=== PATIENT | male | born 1975 | race Caucasian/White ===

== ENCOUNTER 2018-01-09 05:26 | Emergency (ER) | payer BC ==
[~2018-01-09 05:26] MED LIST: ALBU8.5H12 IH
--- NOTE | 2018-01-09 05:30 | ER Report ---
History and Physical Time Seen By MD: 05:28 HPI/ROLDAN CHIEF COMPLAINT: Esophageal blockage HISTORY OF PRESENT ILLNESS: 42-year-old male presents ambulatory to the ER stating he has a pieces take stuck in his throat since approximately 6 PM. He has been unable to swallow his secretions. Patient denies a long history of gastric esophageal reflux disease. He notes occasional heartburn. He notes occasional dysphasia with dry foods. Patient states he tried to drink some Mountain Dew. He is able to keep down for a few minutes and then it comes back up. REVIEW OF SYSTEMS: Respiratory: No cough, no dyspnea. Cardiovascular: No chest pain, no palpitations. Gastrointestinal: As above Musculoskeletal: No back pain. Allergies: Coded Allergies: No Known Drug Allergies (Verified , 11/26/10) Home Meds Reported Medications Budesonide/Formoterol Fumarate (SYMBICORT 160-4.5 MCG INHALER) 10.2 Gm Inh, 10.2 GM INH, INH 01/09/18 Discontinued Reported Medications Albuterol Sulfate (Albuterol Sulfate Hfa) 8.5 Gm Hfa.aer.ad, 8.5 GM IH, 0 Refills 11/26/10 Past Medical/Surgical History Reactive airways disease, uses Symbicort secondary to dust from woodworking Reviewed Nurses Notes: Yes Old Medical Records Reviewed: Yes Hx Substance Use Disorder: No Hx Alcohol Use: No Constitutional Vital Sign - Last 24 Hours 01/09/18 01/09/18 01/09/18 01/09/18 05:30 05:32 05:36 05:41 Pulse 79 69 70 Resp 16 B/P (MAP) 125/90 (102) 125/90 Pulse Ox 98 93 93 O2 Delivery Room Air 01/09/18 01/09/18 01/09/18 01/09/18 05:46 05:51 05:56 06:00 Pulse 71 78 B/P (MAP) 120/88 (99) 118/85 (96) Pulse Ox 93 93 01/09/18 01/09/18 01/09/18 01/09/18 06:01 06:06 06:11 06:16 Pulse 71 ??? 74 75 Pulse Ox 94 94 94 93 01/09/18 01/09/18 01/09/18 01/09/18 06:21 06:26 06:30 06:36 Pulse 76 65 58 B/P (MAP) 120/93 (102) Pulse Ox 96 96 96 Physical Exam General Appearance: The patient is alert, has no immediate need for airway protection and no current signs of toxicity. Vital signs stable, afebrile, pulse ox normal HEENT: Pupils equal and round no injection. Oropharynx without redness or exudate, mucous members are moist., No visualized foreign body Respiratory: Chest is non tender, lungs are clear to auscultation. Cardiac: regular rate and rhythm Gastrointestinal: Abdomen is soft and non tender, no masses, bowel sounds normal. Musculoskeletal: Neck: Neck is supple and non tender. No palpable foreign body Extremities have full range of motion and are non tender. Skin: No rashes or lesions. DIFFERENTIAL DIAGNOSIS: After history and physical exam differential diagnosis was considered for esophageal obstruction, esophageal mass, Jean's esophagus , esophageal stricture Medical Decision Making ED Course/Re-evaluation Clinical Indication for ER IV: Hydration, IV Access ED Course Patient was admitted to an examination room. H&P was done. The dental diagnoses was considered. On conical examination, patient appears to have esophageal foreign body obstruction. Patient was medicated with glucagon 1 mg IV. After approximately 30 minutes. He was able to tolerate some 7-Up. Apparently relaxes esophagus enough to allow the piece of steak. He had the obstructing his esophagus the past. He was able to drink a whole 8 ounce 7-Up without difficulty. He had no regurgitation. Patient will likely go home. I do not think he needs endoscopy. He is advised to start Prilosec 20 mg per day. And called general surgery for endoscopy to evaluate his esophagus. 01/09/2018 6:25:09 am patient was able to drink a 7-Up without any difficulty. He thinks the medial is passed. We'll discharge him home. Decision to Disposition Date: Jan 09, 2018 Decision to Disposition Time: 06:23 Depart Departure Latest Vital Signs Vital Signs Date Time Temp Pulse Resp B/P (MAP) Pulse Ox O2 Delivery O2 Flow Rate FiO2 01/09/18 06:36 58 96 01/09/18 06:30 120/93 (102) 01/09/18 05:32 16 Room Air Impression: Primary Impression: Esophageal foreign body Condition: Improved Disposition: HOME OR SELF-CARE Referrals: JAYME IRVING MD,MELISSA Gonzalez MD Patient Instructions: Esophageal Foreign Body (ED) Additional Instructions: Contact one of the surgeons listed on your paperwork for endoscopy to evaluate your esophagus Take Prilosec OTC 20 mg per day for several months Follow-up with [facility] primary care if you have any other health problems Problem Qualifiers Primary Impression: Esophageal foreign body Encounter type: initial encounter Qualified Codes: T18.108A - Unspecified foreign body in esophagus causing other injury, initial encounter ALENA GOLDEN DO Jan 09, 2018 05:30
[2018-01-09] MEDS ORDERED: BUDE10.2 INH (05:34)
[2018-01-09] MEDS ORDERED: NORMOSOL R SOLN(*) 1000 ML BAG 1,000 ML IV ONE (05:40)
[2018-01-09] MEDS ORDERED: GLUCAGON 1 MG KIT IV ONE (05:40)
[2018-01-09 06:30] VITALS: BP 120/93
== END 2018-01-09 06:30 | disposition home or self-care (01) ==
LOC: ER 05:37
DX: T18.108A Unspecified foreign body in esophagus causing other injury, initial encounter (principal)
CPT/HCPCS: 96365; 99283; J1610

== ENCOUNTER 2018-01-18 03:35 | Day surgery (SDC) | payer BC ==
[~2018-01-18] VITALS: Ht 172.7 cm; Wt 83.9 kg
[~2018-01-18 03:35] MED LIST changes: +BUDE10.2 INH
--- NOTE | 2018-01-18 06:38 | Post Operative Progress Note ---
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
[2018-01-18] MEDS ORDERED: PANT40TA65 PO (06:40)
--- NOTE | 2018-01-18 06:41 | Short(Outpt) Discharge Summary ---
Discharge Summary Reason for Hosp/Final Diag: (1) Dysphagia Hospital Course & Plan: distal esophageal ring and erosion on the pylorus, dilation to 20 mm balloon Departure Discharge to: Home Discharge Instructions Home Meds Active Scripts Pantoprazole Sodium (PANTOPRAZOLE SODIUM) 40 Mg Tablet.dr, 40 MG PO QDAY, #60 TAB.SR 3 Refills Prov:JAYME IRVING MD 01/18/18 Reported Medications Budesonide/Formoterol Fumarate (SYMBICORT 160-4.5 MCG INHALER) 10.2 Gm Inh, 10.2 GM INH, INH 01/09/18 Diet: Regular Activity: As Tolerated Special Instructions: script for protonix JAYME IRVING MD Jan 18, 2018 06:41
[2018-01-18] MEDS ORDERED: PROPOFOL EMUL(*) 10MG/ML 20 ML 20 ML ONE (07:26)
[2018-01-18 08:40] VITALS: BP 138/100
[2018-01-18] MEDS ORDERED: LIDOCAINE/SOD BICARB 8.4% SYR ID ONE (09:40)
[2018-01-18] MEDS ORDERED: MIDAZOLAM 2 MG/2 ML VIAL IVP ONE (09:40)
[2018-01-18] MEDS ORDERED: NORMOSOL R SOLN(*) 1000 ML BAG 1,000 ML IV PRN (09:40)
[2018-01-18 10:40] VITALS: BP 103/71
[2018-01-18 11:10] VITALS: BP 117/77
[2018-01-18 11:15] VITALS: BP 112/83
[2018-01-18 11:16] VITALS: BP 109/78
--- NOTE | 2018-01-18 16:22 | OPERATIVE REPORT 1 ---
EVENT DATE: January 18, 2018 SURGEON: Sae Haynes MD ANESTHESIOLOGIST: Salvador Pinedo MD ANESTHESIA: Sedation. PREOPERATIVE DIAGNOSIS Dysphagia. 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 PROCEDURE PERFORMED Esophagogastroduodenoscopy with balloon dilatation of the distal esophagus to 20 cm. DESCRIPTION OF PROCEDURE The patient was placed in the left lateral decubitus position and given intravenous sedation. The flexible gastroscope was inserted. The proximal esophagus distended nicely and had normal-appearing mucosa. At the GE junction , he had a ring. He had no ulceration noted. This was right at 40 cm. We passed the esophagus into the stomach which was empty. We passed through the pylorus into the second and third portions of the duodenum which were normal. The duodenal bulb was normal. At the pylorus, he had a couple of small erosions , not discrete ulcers, just some eroded mucosa. Pictures were taken. The antrum was normal. The body of the stomach was normal. The scope was retroflexed. There were no fundic lesions. We then withdrew the scope, placed the balloon across the GE junction, and did progressive dilatations to 20 mm. The patient tolerated the procedure well. No apparent complications. KILLIAND
== END 2018-01-18 11:25 | disposition home or self-care (01) ==
LOC: OR 03:35
PROVIDERS: ATTEND Surgery
DX: K22.2 Esophageal obstruction (principal); K25.9 Gastric ulcer, unspecified as acute or chronic, without hemorrhage or perforation
CPT/HCPCS: 43249; J2704